=== PATIENT | female | born 1945 | race Caucasian/White ===

== ENCOUNTER 2022-06-14 09:21 | Inpatient (IN) | payer OTHER ==
[2022-06-08 12:37] LABS: BASOPHILS % (AUTO) 0.3 % (0-1); EOSINOPHILS # (AUTO) 0.2 X10'3 (0-0.9); EOSINOPHILS % (AUTO) 1.7 % (0-6); LYMPHOCYTES # (AUTO) 2.1 X10'3 (1.1-4.8); LYMPHOCYTES % (AUTO) 23.3 % (21-51); MEAN CORPUSCULAR HEMOGLOBIN 28.2 PG (27.0-31.0); MEAN CORPUSCULAR HGB CONC 33.2 g/dL (33.0-36.5); MEAN PLATELET VOLUME 7.6 FL (7.4-10.4); MONOCYTES # (AUTO) 0.8 X10'3 (0-0.9); NEUTROPHILS % (AUTO) 65.7 % (42-75); PRE OP HEMATOCRIT 41.6 % (35.0-45.0); PRE OP HEMOGLOBIN 13.8 g/dL (12.0-16.0); PRE OP PLATELET COUNT 310 X10'3 (140-440); RED BLOOD COUNT 4.89 X10'6 (4.20-5.60); RED CELL DISTRIBUTION WIDTH 14.3 % (11.5-14.5)
[2022-06-08 12:49] LABS: PRE OP PROTIME 10.4 SECONDS (9.0-12.0)
[2022-06-08 12:59] LABS: ALBUMIN 3.5 G/DL (3.4-5.0); ALBUMIN/GLOBULIN RATIO 0.9 (1.1-1.5); ALKALINE PHOSPHATASE 101 IU/L (46-116); BLOOD UREA NITROGEN 12 MG/DL (7-18); BUN/CREATININE RATIO 17.1 (6.6-38.0); CALCIUM 8.5 MG/DL (8.5-10.1); CHLORIDE 105 MMOL/L (99-107); PRE OP ALT 22 U/L (30-65); PRE OP ANION GAP 8 (8-16); PRE OP AST 14 U/L (10-37); PRE OP BILIRUB, TOTAL 0.3 MG/DL (0.0-1.0); PRE OP GLUCOSE 97 MG/DL (70-104); PRE OP POTASSIUM 3.7 MMOL/L (3.4-5.1); PRE OP SODIUM 143 MMOL/L (135-145); TOTAL CARBON DIOXIDE 30.4 MMOL/L (24-32); TOTAL PROTEIN 7.2 G/DL (6.4-8.2); eGFR 81 ML/MIN
[2022-06-14] VITALS (15 sets, daily range): BP systolic 121–141; BP diastolic 53–74
[~2022-06-14] VITALS: Ht 157.5 cm; Wt 81.6 kg
[2022-06-14] MEDS: ascorbic acid 500mg tablet PO SCH ×2 (08:00→20:13)
[2022-06-14] MEDS: gabapentin 300mg capsule PO SCH ×3 (08:00→20:13)
[2022-06-14] MEDS: multivitamins, therapeutics tablet PO SCH (08:00)
[2022-06-14] MEDS: aspirin 325mg tablet PO SCH (08:30)
[~2022-06-14 09:21] MED LIST: CARB1TAB36 PO; DICL-212 PO; GABA300C PO; HYDROcodone/acetaminophen 10/325mg tab PO PRN; HYDROmorphone 1 mg/ml syringe IV PRN; HYDROmorphone inj. 0.5 MG/0.5 ML DISP.SYRIN IV PRN; LEVO75TA56 PO; LEVO88TA39 PO; OMEP40CA21 PO; ROPIVAcaine 0.5% (5mg/ml) 30ml vial ONE; TEMA15CA PO; TRAM50TA2 PO; VENL75CA61 PO; acetaminophen 325mg tablet PO ONE; acetaminophen 325mg tablet PO PRN; bisacodyl 10mg suppository rectal RC PRN; ceFAZolin inj. 2,000 MG in dextrose 5%-water 100 ML IV ONE; celeCOXIB 100mg capsule PO ONE; cloNIDine hcl/PF 100mcg/ml inj ONE; diphenhydrAMINE 25mg capsule PO PRN; epiNEPHrine 1 mg/ml inj ONE; famotidine 20mg tablet PO ONE; gabapentin 300mg capsule PO ONE; ketorolac trometh. 30mg/ml inj. ONE; magnesium hydroxide 30ml (MOM) UD suspension PO PRN; metoclopramide 5 mg/ml inj IV ONE; naloxone 0.4 mg/ml inj IV PRN; ondansetron/PF 4mg/2ml inj IV PRN; oxyCODONE SR 10mg (sust. release) tab -2 tabs (20mg) PO ONE; ringers solution, lacted 1,000 ML IV SCH; temazepam 15mg capsule PO PRN; tranexamic acid inj. 1,000 MG in normal saline IV soln 100ML IV ONE; vancomycin 1,000mg inj ONE; vancomycin 1,500 MG in NS 300ml IV soln IV ONE
[2022-06-14] MEDS ORDERED: fentaNYL/PF 50MCG/1 ML 2ML syringe ONE (12:47)
[2022-06-14] MEDS ORDERED: MIDAZolam 1 MG/ML 5ML VIAL ONE (13:04)
[2022-06-14] MEDS ORDERED: morphine 4 MG/ML inj SYRINge IV PRN (13:25)
[2022-06-14] MEDS ORDERED: ondansetron/PF 4mg/2ml inj IV PRN (13:25)
[2022-06-14] MEDS ORDERED: ringers solution, lacted 1,000 ML IV SCH (13:25)
[2022-06-14] MEDS ORDERED: labetalol 5mg/ml 20ml inj. IV PRN (13:25)
[2022-06-14] MEDS ORDERED: hydrALAZINE 20mg/ml inj. IV PRN (13:25)
[2022-06-14] MEDS ORDERED: fentaNYL/PF 50MCG/1 ML 2ML syringe IV PRN ×2 (13:25)
[2022-06-14] MEDS ORDERED: morphine 2 MG/ML inj. syringe IV PRN (13:25)
[2022-06-14] MEDS ORDERED: ROPIVAcaine 0.2% (10 MG/5 ML) BOLUS INJECTION ADDCANAL PRN (13:25)
--- NOTE | 2022-06-14 14:29 | NUR ---
Received from OR via [facility] BED , accompanied by Anesthesiologist CESAR and report given by Anesthesiolgist. PATIENT WITH 20G PIV IN LEFT HAND RUNNING LR AT 100. VSS. RIGHT KNEE DRESSING IS CDI. KNEE WRAP PRESENT IS A POWDER PACK PRESENT. + DP TO FOOT. MARKED ON FOOT. SCDS DONNED. CYNTHIA VAC IN PLACE AND AGAIN IS ORANGE ON ARRIVAL FROM OR AND DRESSING INSPECTED FOR LEAKS. RESET CYNTHIA VAC AND LIGHT NOW GREEEN AND FUNCTIONING WELL. 10L MASK ON WITH 100% SATURATIONS. Addendum: 06/14/22 at 1448 by Yahir Barry RN, RN Amended: Links added.
[2022-06-14] MEDS: ROPIVAcaine 0.2%/PF PUMP/bolus 545 ML ADDCANAL SCH (15:19)
--- NOTE | 2022-06-14 15:29 | NUR ---
CARE OF PATIENT AND REPORT HAS BEEN CALLED. ALL QUESTIONS ANSWERED TO ACCEPTING RN. PATIENT HAS MET ALL CRITERIA FOR TRANSFER TO THE [facility] ORTHO FLOOR. VSS. DRESSINGS INTACT. BED LOW, CALL LIGHT PRESENT AND 2 RAILS UP. RN KELBY PRESENT TO ACCEPT CARE OF THIS PATIENT. ONE BAG OF BELONGINGS WITH PATIENT. PATIENTS SPOUSE ACCOMPANIED TO THE 4TH FLOOR. DRESSINGS ALL CDI. Addendum: 06/14/22 at 1539 by Yahir Man - MIGUEL RN Amended: Links added.
[2022-06-14] MEDS: HYDROcodone/acetaminophen 10/325mg tab PO PRN ×2 (16:20→20:43)
[2022-06-14] MEDS ORDERED: tranexamic acid inj. 800 MG in normal saline 100ml IV soln 92 ML IV ONE (17:00)
[2022-06-14] MEDS: cefazolin/dext.iso 2gm/100ml 100 ML IV SCH (17:52)
[2022-06-14] MEDS: potassium cl 20mEq in 1/2 NS 1,000 ML IV SCH (17:52)
--- NOTE | 2022-06-14 18:29 | NUR ---
Problems reprioritized. Patient report given, questions answered & plan of care reviewed with MIGUEL Magana .
[2022-06-14] MEDS: sennosides 8.6mg tablet PO SCH (20:13)
[2022-06-14] MEDS: carbidoba-levodopa 25-100mg tablet PO SCH (20:14)
[2022-06-14] MEDS ORDERED: VANCOMYCIN 1,500MG inj. 1,500 MG in normal saline 500ml IV soln 300 ML IV SCH (23:00)
[2022-06-15] MEDS: cefazolin/dext.iso 2gm/100ml 100 ML IV SCH (00:04)
[2022-06-15] MEDS: HYDROcodone/acetaminophen 10/325mg tab PO PRN ×5 (00:44→21:34)
[2022-06-15] MEDS: potassium cl 20mEq in 1/2 NS 1,000 ML IV SCH ×4 (00:54→22:50)
[2022-06-15 02:00] VITALS: BP 145/66
[2022-06-15 06:00] VITALS: BP 141/63
--- NOTE | 2022-06-15 06:03 | NUR ---
Problems reprioritized. Patient report given, questions answered & plan of care reviewed with MIGUEL GUNTER.
[2022-06-15 06:29] LABS: BASOPHILS % (AUTO) 0.4 % (0-1); EOSINOPHILS # (AUTO) 0.1 X10'3 (0-0.9); EOSINOPHILS % (AUTO) 1.3 % (0-6); HEMOGLOBIN 11.3 g/dl (12.0-16.0); LYMPHOCYTES # (AUTO) 1.4 X10'3 (1.1-4.8); LYMPHOCYTES % (AUTO) 14.5 % (21-51); MEAN CORPUSCULAR HEMOGLOBIN 28.6 PG (27.0-31.0); MEAN CORPUSCULAR HGB CONC 33.3 g/dL (33.0-36.5); MEAN PLATELET VOLUME 7.8 FL (7.4-10.4); MONOCYTES # (AUTO) 1.1 X10'3 (0-0.9); MONOCYTES % (AUTO) 11.7 % (2-12); NEUTROPHILS % (AUTO) 72.1 % (42-75); PLATELET COUNT 263 X10'3 (140-440); RED BLOOD COUNT 3.96 X10'6 (4.20-5.60); RED CELL DISTRIBUTION WIDTH 14.4 % (11.5-14.5); WHITE BLOOD COUNT 9.7 X10'3 (4.5-11.0)
[2022-06-15 06:52] LABS: ANION GAP 6 (8-16); CHLORIDE 104 MMOL/L (99-107); POTASSIUM 3.9 MMOL/L (3.5-5.1); SODIUM 138 MMOL/L (135-145); TOTAL CARBON DIOXIDE 27.6 MMOL/L (24-32)
[2022-06-15] MEDS: levoTHYROXINE 88mcg tablet PO SCH (08:06)
[2022-06-15] MEDS: venlafaxine XR 75mg capsule (Q24H) PO SCH (08:06)
[2022-06-15] MEDS: gabapentin 300mg capsule PO SCH ×3 (08:06→21:29)
[2022-06-15] MEDS: multivitamins, therapeutics tablet PO SCH (08:06)
[2022-06-15] MEDS: levoTHYROXINE 75mcg tablet PO SCH (08:06)
[2022-06-15] MEDS: ascorbic acid 500mg tablet PO SCH ×2 (08:06→20:00)
[2022-06-15] MEDS: pantoprazole 40mg Tablet.DR PO SCH (08:06)
[2022-06-15 10:00] VITALS: BP 124/63
[2022-06-15] MEDS: aspirin 325mg tablet PO SCH (10:52)
--- NOTE | 2022-06-15 12:08 | NUR ---
Joint surgery consult: Pt s/p R knee surgery this admit per EMR. Pt seen by GAURI for written/verbal high protein diet ed w/ RD contact information provided. GAURI encouraged pt to contact dietitian's office if further questions/concerns. Addendum: 06/15/22 at [address] Amended: Links added.
--- NOTE | 2022-06-15 12:46 | NUR ---
notified surgeon of pt fall, surgeon ordered knee x-rays and a ct, continue to monitor pt
[2022-06-15 12:49] VITALS: BP 150/78
--- NOTE | 2022-06-15 12:56 | NUR ---
Patient was found on the floor with abrasion to back of her head, which was bleeding. Alert and oriented able to answer questions appropriately, vitals signs are stable. Patient stated she pushed her call light which was not on for very long, then had the urge to urinate and could not wait for assistance then got up and started to walk towards the commode, using her bed to stabilize herself. Physical therapist assisted with helping patient off the floor. was notified. Will get CT scan of her head and x-ray of right knee.
--- NOTE | 2022-06-15 15:51 | NUR ---
called surgeon to notify of neg ct and x-ray results, surgeon said that pt is to stay one more night for observation, continue to monitor pt
[2022-06-15 18:00] VITALS: BP 119/54
--- NOTE | 2022-06-15 18:33 | NUR ---
Problems reprioritized. Patient report given, questions answered & plan of care reviewed with MIGUEL Boateng.
[2022-06-15] MEDS: sennosides 8.6mg tablet PO SCH (21:29)
[2022-06-15] MEDS: carbidoba-levodopa 25-100mg tablet PO SCH (21:29)
[2022-06-15] MEDS: celeCOXIB 100mg capsule PO SCH (21:35)
[2022-06-15 22:00] VITALS: BP 113/74
[2022-06-16] MEDS: HYDROcodone/acetaminophen 10/325mg tab PO PRN ×2 (01:06→05:21)
[2022-06-16 06:00] VITALS: BP 98/74
--- NOTE | 2022-06-16 06:15 | NUR ---
Problems reprioritized. Patient report given, questions answered & plan of care reviewed with troy Klein.
[2022-06-16 06:24] LABS: BASOPHILS # (AUTO) 0.1 X10'3 (0-0.2); BASOPHILS % (AUTO) 0.6 % (0-1); EOSINOPHILS # (AUTO) 0.2 X10'3 (0-0.9); EOSINOPHILS % (AUTO) 2.1 % (0-6); HEMATOCRIT 33.5 % (35.0-45.0); LYMPHOCYTES # (AUTO) 1.5 X10'3 (1.1-4.8); LYMPHOCYTES % (AUTO) 13.5 % (21-51); MEAN CORPUSCULAR HGB CONC 32.8 g/dL (33.0-36.5); MEAN CORPUSCULAR VOLUME 85.4 FL (78-98); MONOCYTES # (AUTO) 1.1 X10'3 (0-0.9); MONOCYTES % (AUTO) 10.5 % (2-12); NEUTROPHILS # (AUTO) 7.9 X10'3 (1.8-7.7); NEUTROPHILS % (AUTO) 73.3 % (42-75); PLATELET COUNT 257 X10'3 (140-440); RED BLOOD COUNT 3.93 X10'6 (4.20-5.60); RED CELL DISTRIBUTION WIDTH 14.5 % (11.5-14.5); WHITE BLOOD COUNT 10.8 X10'3 (4.5-11.0)
--- NOTE | 2022-06-16 06:32 | NUR ---
Patient in room ORTHO 4010. I have received report from MIGUEL Boateng and had the opportunity to ask questions and assume patient care.
[2022-06-16] MEDS: venlafaxine XR 75mg capsule (Q24H) PO SCH (08:43)
[2022-06-16] MEDS: gabapentin 300mg capsule PO SCH (08:43)
[2022-06-16] MEDS: levoTHYROXINE 75mcg tablet PO SCH (08:43)
[2022-06-16] MEDS: levoTHYROXINE 88mcg tablet PO SCH (08:43)
[2022-06-16] MEDS: celeCOXIB 100mg capsule PO SCH (08:43)
[2022-06-16] MEDS: multivitamins, therapeutics tablet PO SCH (08:43)
[2022-06-16] MEDS: ascorbic acid 500mg tablet PO SCH (08:43)
[2022-06-16] MEDS: pantoprazole 40mg Tablet.DR PO SCH (08:43)
[2022-06-16] MEDS: aspirin 325mg tablet PO SCH (08:44)
[2022-06-16] MEDS: ROPIVAcaine 0.2%/PF PUMP/bolus 545 ML ADDCANAL SCH (08:52)
[2022-06-16 10:00] VITALS: BP 118/52
--- NOTE | 2022-06-16 12:13 | NUR ---
Patient was discharged at 1144 with instructions and vwerbalizing understanding of instructions, in wheelchair accompanied by nursing staff and spouse. Patient is going home via private vehicle. All lines and tubes , including PIV with cannula intact have been removed. Postop education has been provided and all questions have been answered. Patient already has a follow up appointment with Dr. Gutierrez. Patient is stable and appropriate for discharge.
== END 2022-06-16 12:09 | disposition home or self-care (01) | DRG 470 ==
LOC: PAS 09:21 → ORTHO 4S 09:22
PROVIDERS: ADMIT Orthopaedic Surgery; ATTEND Orthopaedic Surgery
PROC: 3E0T3BZ Introduction of Anesthetic Agent into Peripheral Nerves and Plexi, Percutaneous Approach (ICD-10-PCS; 2022-06-14)
PROC: 3E0T33Z Introduction of Anti-inflammatory into Peripheral Nerves and Plexi, Percutaneous Approach (ICD-10-PCS; 2022-06-14)
PROC: 0SRC069 Replacement of Right Knee Joint with Oxidized Zirconium on Polyethylene Synthetic Substitute, Cemented, Open Approach (ICD-10-PCS; principal; 2022-06-14 12:45)
DX: M17.11 Unilateral primary osteoarthritis, right knee (principal); R11.0 Nausea; K21.9 Gastro-esophageal reflux disease without esophagitis; E03.9 Hypothyroidism, unspecified; E66.9 Obesity, unspecified; Z79.890 Hormone replacement therapy; Z68.32 Body mass index [BMI] 32.0-32.9, adult; S01.91XA Laceration without foreign body of unspecified part of head, initial encounter; W18.39XA Other fall on same level, initial encounter; Y92.238 Other place in hospital as the place of occurrence of the external cause; Y99.8 Other external cause status; Y93.89 Activity, other specified; Z79.899 Other long term (current) drug therapy
CPT/HCPCS: Z7506; Z7508; 36415; 70450; 73560; 80051; 80053; 84443; 85025; 85610; 85730; 86885; 86900; 86901; 87081; 87811; 97110; 97116; 97161; 97164; 97530; A4215; A4615; A6449; A7000; C1713; C1758; C1776; G0378; J0171; J0690; J0735; J1170; J1885; J2250; J2765; J2795; J3010; J3370; J3480; J3490; J7040; J7060; J7120

== ENCOUNTER 2022-07-10 16:42 | Emergency (ER) | payer MEDICARE ==
[~2022-07-10] VITALS: Ht 157.5 cm; Wt 81.8 kg
[~2022-07-10 16:42] MED LIST changes: -HYDROcodone/acetaminophen 10/325mg tab PO PRN; -HYDROmorphone 1 mg/ml syringe IV PRN; -HYDROmorphone inj. 0.5 MG/0.5 ML DISP.SYRIN IV PRN; -ROPIVAcaine 0.5% (5mg/ml) 30ml vial ONE; -acetaminophen 325mg tablet PO ONE; -acetaminophen 325mg tablet PO PRN; -bisacodyl 10mg suppository rectal RC PRN; -ceFAZolin inj. 2,000 MG in dextrose 5%-water 100 ML IV ONE; -celeCOXIB 100mg capsule PO ONE; -cloNIDine hcl/PF 100mcg/ml inj ONE; -diphenhydrAMINE 25mg capsule PO PRN; -epiNEPHrine 1 mg/ml inj ONE; -famotidine 20mg tablet PO ONE; -gabapentin 300mg capsule PO ONE; -ketorolac trometh. 30mg/ml inj. ONE; -magnesium hydroxide 30ml (MOM) UD suspension PO PRN; -metoclopramide 5 mg/ml inj IV ONE; -naloxone 0.4 mg/ml inj IV PRN; -ondansetron/PF 4mg/2ml inj IV PRN; -oxyCODONE SR 10mg (sust. release) tab -2 tabs (20mg) PO ONE; -ringers solution, lacted 1,000 ML IV SCH; -temazepam 15mg capsule PO PRN; -tranexamic acid inj. 1,000 MG in normal saline IV soln 100ML IV ONE; -vancomycin 1,000mg inj ONE; -vancomycin 1,500 MG in NS 300ml IV soln IV ONE
[2022-07-10 17:00] VITALS: BP 93/68
[2022-07-10] MEDS ORDERED: OXYC-145 PO (17:29)
[2022-07-10] MEDS ORDERED: BACI30OI9 TOP (17:29)
[2022-07-10] MEDS ORDERED: CEPH250T PO (17:29)
[2022-07-10] MEDS ORDERED: bacitracin 15gm ointment TP ONE (17:30)
[2022-07-10] MEDS ORDERED: oxyCODONE/APAP 5-325mg tablet PO ONE (17:30)
== END 2022-07-10 18:03 | disposition home or self-care (01) ==
LOC: ER 16:43
DX: T24.202A Burn of second degree of unspecified site of left lower limb, except ankle and foot, initial encounter (principal); T22.212A Burn of second degree of left forearm, initial encounter; Z98.890 Other specified postprocedural states; Z88.2 Allergy status to sulfonamides; Z79.2 Long term (current) use of antibiotics; Z79.899 Other long term (current) drug therapy; X08.8XXA Exposure to other specified smoke, fire and flames, initial encounter; Y93.89 Activity, other specified; Y92.89 Other specified places as the place of occurrence of the external cause; Y99.8 Other external cause status
CPT/HCPCS: 16000; 99283; A6258; A6446; A6449

== ENCOUNTER 2024-12-06 17:34 | Emergency (ER) | payer MEDICARE ==
[~2024-12-06] VITALS: Ht 157.5 cm; Wt 81.0 kg
[~2024-12-06 17:34] MED LIST changes: +BACI30OI9 TOP; +OXYC-145 PO
[2024-12-06 17:57] VITALS: TEMP 97.6
[2024-12-06 18:31] LABS: BASOPHILS # (AUTO) 0.1 X10'3 (0-0.2); BASOPHILS % (AUTO) 1.2 % (0-1); EOSINOPHILS # (AUTO) 0.2 X10'3 (0-0.9); EOSINOPHILS % (AUTO) 1.9 % (0-6); HEMATOCRIT 41.8 % (35.0-45.0); HEMOGLOBIN 13.9 g/dl (12.0-16.0); LYMPHOCYTES # (AUTO) 1.9 X10'3 (1.1-4.8); LYMPHOCYTES % (AUTO) 21.9 % (21-51); MEAN CORPUSCULAR HEMOGLOBIN 28.8 PG (27.0-31.0); MEAN CORPUSCULAR HGB CONC 33.1 g/dL (33.0-36.5); MEAN PLATELET VOLUME 8.1 FL (7.4-10.4); MONOCYTES # (AUTO) 0.7 X10'3 (0-0.9); NEUTROPHILS # (AUTO) 5.9 X10'3 (1.8-7.7); PLATELET COUNT 327 X10'3 (140-440); RED CELL DISTRIBUTION WIDTH 14.4 % (11.5-14.5); WHITE BLOOD COUNT 8.7 X10'3 (4.5-11.0)
[2024-12-06 19:22] LABS: ALANINE AMINOTRANSFERASE 19 U/L (12-78); ALBUMIN 3.4 G/DL (3.4-5.0); ALBUMIN/GLOBULIN RATIO 0.9 (1.1-1.5); ALKALINE PHOSPHATASE 90 IU/L (46-116); ANION GAP 7 (8-16); ASPARTATE AMINO TRANSFERASE 18 U/L (10-37); BILIRUBIN,TOTAL 0.2 MG/DL (0.1-1.0); BLOOD UREA NITROGEN 18 MG/DL (7-18); BUN/CREATININE RATIO 28.1 (10.0-20.0); CHLORIDE 106 MMOL/L (99-107); CREATININE 0.64 MG/DL (0.40-0.90); GLUCOSE 133 MG/DL (70-104); POTASSIUM 3.8 MMOL/L (3.5-5.1); SODIUM 141 MMOL/L (135-145); TOTAL CARBON DIOXIDE 27.7 MMOL/L (24-32); TOTAL PROTEIN 7.2 G/DL (6.4-8.2); eCRCL 57 ML/MIN; eGFR 90 ML/MIN
[2024-12-06 19:30] LABS: PRO BRAIN NATRIURETIC PEPTIDE 120 PG/ML (0-450)
[2024-12-07 01:04] VITALS: BP 142/63; PULSE 80; RESP 18; O2SAT 96
== END 2024-12-07 01:05 | disposition home or self-care (01) ==
LOC: ER 17:35
DX: R07.9 Chest pain, unspecified (principal); Z88.2 Allergy status to sulfonamides
CPT/HCPCS: 36415; 71045; 80053; 83880; 84484; 85025; 93005; 99285